=== PATIENT | female | born 1995 | race Caucasian/White ===

== ENCOUNTER 2017-07-11 11:55 | Inpatient (IN) | payer OTHER ==
[2017-07-11 12:35] LABS: HEMOGLOBIN 13.9 g/dl (12.0-15.5); MEAN CORPUSCULAR HEMOGLOBIN 31.3 pg (27.0-33.0); MEAN CORPUSCULAR HGB CONC 34.8 g/dl (32.0-36.5); MEAN CORPUSCULAR VOLUME 90.1 fl (80.0-96.0); PLATELET COUNT, AUTOMATED 234 10^3/uL (150-450); RED BLOOD COUNT 4.44 10^6/uL (4.00-5.40); RED CELL DISTRIBUTION WIDTH 12.5 % (11.5-14.5); WHITE BLOOD COUNT 7.3 10^3/uL (4.0-10.0)
[2017-07-11 12:52] LABS: CONTROL LINE HCG INT CTR LINE PRESENT; HCG, SERUM QUALITATIVE NEGATIVE (NEGATIVE)
[2017-07-11 12:56] LABS: AMPHETAMINES LEVEL URINE NEGATIVE (NEGATIVE); BARBITURATES URINE NEGATIVE (NEGATIVE); BENZODIAZEPINES URINE POSITIVE (NEGATIVE); CANNABINOIDS URINE NEGATIVE (NEGATIVE); COCAINE METABOLITE URINE NEGATIVE (NEGATIVE); METHADONE URINE NEGATIVE (NEGATIVE); OPIATES URINE NEGATIVE (NEGATIVE); PHENCYCLIDINE URINE NEGATIVE (NEGATIVE)
[2017-07-11 13:04] LABS: ALBUMIN 4.4 GM/DL (3.2-5.2); ALBUMIN/GLOBULIN RATIO 1.16 (1.00-1.93); ALKALINE PHOSPHATASE 123 U/L (45-117); ALT/SGPT 26 U/L (12-78); ANION GAP 7 MEQ/L (8-16); AST/SGOT 22 U/L (7-37); BILIRUBIN,DIRECT 0.3 MG/DL (0.0-0.2); BILIRUBIN,TOTAL 1.1 MG/DL (0.2-1.0); BLOOD UREA NITROGEN 14 MG/DL (7-18); CALCIUM LEVEL 9.2 MG/DL (8.5-10.1); CARBON DIOXIDE LEVEL 25 MEQ/L (21-32); CHLORIDE LEVEL 106 MEQ/L (98-107); CREATININE FOR GFR 0.81 MG/DL (0.55-1.30); ETHYL ALCOHOL (ETHANOL) < 0.003 % (0.000-0.010); GLUCOSE, FASTING 86 MG/DL (70-100); POTASSIUM SERUM 3.7 MEQ/L (3.5-5.1); SALICYLATE LEVEL < 1.7 MG/DL (5.0-30.0); SODIUM LEVEL 138 MEQ/L (136-145); THYROID STIMULATING HORMONE 0.722 uIU/ML (0.463-3.98); TOTAL PROTEIN 8.2 GM/DL (6.4-8.2)
[2017-07-11 13:22] LABS: ACETAMINOPHEN LEVEL < 2.0 UG/ML (10.0-30.0)
[2017-07-11] MEDS ORDERED: MAALOX 30 ML SUSP *UDC PO (18:45)
[2017-07-11] MEDS ORDERED: MOM 30ML SUSPENSION UDC PO (18:45)
[2017-07-11] MEDS ORDERED: traZODone 50 MG TAB PO (18:45)
[2017-07-11] MEDS ORDERED: ACETAMINOPHEN TAB 650MG DOSE (2X325MG) PO (18:45)
[2017-07-11] MEDS: LORazepam 1 MG TAB PO (21:48)
[2017-07-12] MEDS: SERTRALINE HCL 50 MG TAB PO (09:05)
[2017-07-12] MEDS ORDERED: hydrOXYzine 25 MG TAB PO (12:30)
[2017-07-12] MEDS ORDERED: PILL CRUSHER/CUTTER 1 EACH XX (12:45)
[2017-07-12] MEDS: DOXEPIN 25 MG CAP PO (20:49)
[2017-07-12] MEDS: PRAZOSIN 1 MG CAP PO (20:50)
[2017-07-13] MEDS: SERTRALINE 100 MG TAB PO (08:11)
[2017-07-13] MEDS: DOXEPIN 25 MG CAP PO (20:55)
[2017-07-13] MEDS: PRAZOSIN 1 MG CAP PO (20:55)
[2017-07-14] MEDS: SERTRALINE 100 MG TAB PO (08:59)
== END 2017-07-14 12:30 | disposition home or self-care (01) | DRG 882 ==
LOC: M ED 11:55 → M ED INP 15:21 → M PSY 17:15
DX: F43.10 Post-traumatic stress disorder, unspecified (principal); R45.851 Suicidal ideations; F32.9 Major depressive disorder, single episode, unspecified; Z79.899 Other long term (current) drug therapy; F17.200 Nicotine dependence, unspecified, uncomplicated

== ENCOUNTER 2018-02-01 09:53 | Emergency (ER) | payer OTHER ==
[2018-02-01 10:32] LABS: BASO % 0.6 % (0.0-1.0); EOS # 0.1 10^3/uL (0.0-0.50); EOS % 0.9 % (0.0-3.0); HEMOGLOBIN 13.7 g/dl (12.0-15.5); IMMATURE GRANULOCYTE % 0.2 % (0-3.0); LYMPH # 2.1 10^3/uL (1.5-6.5); LYMPH % 32.3 % (24.0-44.0); MEAN CORPUSCULAR HEMOGLOBIN 30.6 pg (27.0-33.0); MEAN CORPUSCULAR HGB CONC 33.4 g/dl (32.0-36.5); MEAN CORPUSCULAR VOLUME 91.7 fl (80.0-96.0); MONO # 0.6 10^3/uL (0.0-0.8); MONO % 8.6 % (0.0-5.0); NEUTROPHILS # 3.7 10^3/uL (1.8-7.7); NEUTROPHILS % 57.4 % (36.0-66.0); PLATELET COUNT, AUTOMATED 266 10^3/uL (150-450); RED BLOOD COUNT 4.47 10^6/uL (4.00-5.40); RED CELL DISTRIBUTION WIDTH 12.5 % (11.5-14.5); WHITE BLOOD COUNT 6.4 10^3/uL (4.0-10.0)
[2018-02-01 10:43] LABS: KETONE, URINE AUTO RFX NEGATIVE (NEGATIVE); LEUKOCYTE ESTERASE UR AUTO RFX 1+ (NEGATIVE); NITRITE, URINE AUTO RFX NEGATIVE (NEGATIVE); RBC, URINE AUTO RFX 0 /HPF (0-3); SPECIFIC GRAVITY UR AUTO RFX 1.014 (1.002-1.035); SQUAM EPITHELIAL CELL UR AURFX 1 /HPF (0-6); WBC, URINE AUTO RFX 2 /HPF (0-3)
[2018-02-01 11:03] LABS: ALBUMIN/GLOBULIN RATIO 1.11 (1.00-1.93); ALKALINE PHOSPHATASE 93 U/L (45-117); ALT/SGPT 22 U/L (12-78); ANION GAP 7 MEQ/L (8-16); AST/SGOT 15 U/L (7-37); BILIRUBIN,DIRECT 0.2 MG/DL (0.0-0.2); BILIRUBIN,TOTAL 0.8 MG/DL (0.2-1.0); BLOOD UREA NITROGEN 16 MG/DL (7-18); CALCIUM LEVEL 8.6 MG/DL (8.5-10.1); CARBON DIOXIDE LEVEL 28 MEQ/L (21-32); CHLORIDE LEVEL 104 MEQ/L (98-107); CREATININE FOR GFR 0.76 MG/DL (0.55-1.30); GLUCOSE, FASTING 93 MG/DL (70-100); LIPASE 150 U/L (73-393); POTASSIUM SERUM 4.2 MEQ/L (3.5-5.1); SODIUM LEVEL 139 MEQ/L (136-145); TOTAL PROTEIN 7.6 GM/DL (6.4-8.2)
[2018-02-01 11:29] LABS: CONTROL LINE HCG INT CTR LINE PRESENT; HCG, SERUM QUALITATIVE NEGATIVE (NEGATIVE)
[2018-02-01] MEDS: GI COCKTAIL 50ML BTL(HYOSCYAMINE/MAALOX/LIDOCAINE VISCOUS)(1:3:1) PO (11:49)
== END 2018-02-01 11:56 | disposition home or self-care (01) ==
LOC: M ED 09:53
DX: K29.00 Acute gastritis without bleeding (principal); F33.9 Major depressive disorder, recurrent, unspecified; F41.9 Anxiety disorder, unspecified; Z79.899 Other long term (current) drug therapy
CPT/HCPCS: 83690

== ENCOUNTER 2018-03-19 21:20 | Emergency (ER) | payer OTHER ==
[~2018-03-19] VITALS: Ht 157.5 cm; Wt 63.6 kg
[2018-03-19 21:20] VITALS: BP 139/65
[~2018-03-19 21:20] MED LIST: AMOX500C PO; ARIP5TA PO; DOXE25CA PO; HYDR-3363 PO; MINI1CAP PO; OMEP40CA2 PO; PRAZ1CAP PO; SERT-138 PO; TRAZ1TAB14 PO; XANA0.5T PO; ZOFR4TAB14 PO; ZOLO50TA PO
[2018-03-19] MEDS ORDERED: IBUP-1022 PO (22:15)
[2018-03-19] MEDS ORDERED: IBUPROFEN 600 MG TAB PO ONE (22:15)
[2018-03-19] MEDS ORDERED: REGL10TA6 PO (22:15)
[2018-03-19] MEDS ORDERED: METOCLOPRAMIDE 10 MG TAB PO ONE (22:15)
== END 2018-03-19 22:25 | disposition home or self-care (01) ==
LOC: M ED 21:20
DX: S06.0X9A Concussion with loss of consciousness of unspecified duration, initial encounter (principal); Y04.8XXA Assault by other bodily force, initial encounter; Y92.019 Unspecified place in single-family (private) house as the place of occurrence of the external cause

== ENCOUNTER 2018-04-03 15:58 | Emergency (ER) | payer OTHER ==
[~2018-04-03] VITALS: Ht 157.5 cm; Wt 63.6 kg
[~2018-04-03 15:58] MED LIST changes: +IBUP-1022 PO; +REGL10TA6 PO
[2018-04-03] MEDS ORDERED: ROBA500T PO (18:05)
[2018-04-03] MEDS ORDERED: REGL10TA6 PO (18:05)
[2018-04-03] MEDS ORDERED: ACETAMINOPHEN 325 MG TAB PO ONE (18:15)
[2018-04-03] MEDS ORDERED: METHOCARBAMOL 750 MG TAB PO ONE (18:15)
[2018-04-03 18:35] VITALS: BP 119/66
== END 2018-04-03 18:36 | disposition home or self-care (01) ==
LOC: M ED 15:58
DX: S06.0X0A Concussion without loss of consciousness, initial encounter (principal); E86.0 Dehydration; Y04.8XXA Assault by other bodily force, initial encounter; Y92.89 Other specified places as the place of occurrence of the external cause; Z79.899 Other long term (current) drug therapy

== ENCOUNTER 2018-06-24 21:01 | Emergency (ER) | payer OTHER, SELFPAY ==
[~2018-06-24] VITALS: Ht 154.9 cm; Wt 65.9 kg
[~2018-06-24 21:01] MED LIST changes: +ARIP1TAB6 PO; -ARIP5TA PO; +ROBA500T PO
[2018-06-24] MEDS ORDERED: CLINDAMYCIN 150 MG CAP PO ONE (22:15)
[2018-06-24] MEDS ORDERED: CLEO300C2 PO (22:16)
[2018-06-24 22:38] VITALS: BP 135/69
[2018-07-20] MEDS ORDERED: TRAZ-252 PO (21:36)
== END 2018-06-24 22:41 | disposition home or self-care (01) ==
LOC: M ED 21:01
DX: L03.116 Cellulitis of left lower limb (principal); F41.9 Anxiety disorder, unspecified; F32.9 Major depressive disorder, single episode, unspecified; Z79.899 Other long term (current) drug therapy

== ENCOUNTER 2018-07-07 05:10 | Emergency (ER) | payer OTHER, SELFPAY ==
[~2018-07-07] VITALS: Ht 157.5 cm; Wt 63.6 kg
[~2018-07-07 05:10] MED LIST changes: +CLEO300C2 PO
[2018-07-07] MEDS ORDERED: ONDANSETRON 4MG/2ML VIAL (J2405) IV ONE (06:15)
[2018-07-07] MEDS: MORPHINE 2 MG/ML 1ML SYRINGE (J2270) IV PRN ×2 (06:28→07:18)
[2018-07-07 06:37] LABS: BASO # 0.1 10^3/uL (0.0-0.2); BASO % 0.5 % (0.0-1.0); EOS # 0.1 10^3/uL (0.0-0.50); EOS % 0.8 % (0.0-3.0); HEMATOCRIT 39.4 % (36.0-47.0); HEMOGLOBIN 13.5 g/dl (12.0-15.5); LYMPH # 2.1 10^3/uL (1.5-6.5); LYMPH % 14.1 % (24.0-44.0); MEAN CORPUSCULAR HEMOGLOBIN 30.8 pg (27.0-33.0); MEAN CORPUSCULAR HGB CONC 34.3 g/dl (32.0-36.5); MEAN CORPUSCULAR VOLUME 89.7 fl (80.0-96.0); MONO # 0.8 10^3/uL (0.0-0.8); MONO % 5.7 % (0.0-5.0); NEUTROPHILS # 11.4 10^3/uL (1.8-7.7); NEUTROPHILS % 78.4 % (36.0-66.0); PLATELET COUNT, AUTOMATED 253 10^3/uL (150-450); RED BLOOD COUNT 4.39 10^6/uL (4.00-5.40); WHITE BLOOD COUNT 14.5 10^3/uL (4.0-10.0)
[2018-07-07 06:52] LABS: HCG, SERUM QUALITATIVE NEGATIVE (NEGATIVE)
[2018-07-07] MEDS ORDERED: NORC1TAB7 PO (06:54)
[2018-07-07 07:17] LABS: AMPHETAMINES LEVEL URINE NEGATIVE (NEGATIVE); BARBITURATES URINE NEGATIVE (NEGATIVE); BENZODIAZEPINES URINE NEGATIVE (NEGATIVE); CANNABINOIDS URINE POSITIVE (NEGATIVE); COCAINE METABOLITE URINE NEGATIVE (NEGATIVE); METHADONE URINE NEGATIVE (NEGATIVE); OPIATES URINE NEGATIVE (NEGATIVE); PHENCYCLIDINE URINE NEGATIVE (NEGATIVE)
--- NOTE | 2018-07-07 08:26 | REP ---
CT abdomen and pelvis without IV or oral contrast: History: Right renal colic. Findings: Preliminary digital clinical aide radiograph demonstrates umbilical jewelry. The lung bases are clear on axial CT images. The liver and the spleen are normal in size homogeneous in texture. No adrenal lesion is seen. The gallbladder and the pancreas are unremarkable. There is no evidence of intrarenal calculus on either side. No hydronephrosis is seen. No retroperitoneal mass or adenopathy is observed. Normal appendix is seen in the right lower quadrant. No uterine or ovarian abnormality is seen. Urinary bladder is unremarkable. There is there is no evidence of free air or abnormal fluid collection. No abdominal wall defect or bony destructive lesion is seen. Impression: No urinary tract calculus seen. No hydronephrosis noted. A normal appendix is seen in the central pelvis. No acute abdominal or pelvic abnormality. Electronically Signed by Reese Mehta MD 07/07/2018 08:18 A
[2018-07-07] MEDS ORDERED: METOCLOPRAMIDE INJ 10MG/2ML VIAL (J2765) IV ONE (09:45)
[2018-07-07] MEDS ORDERED: REGL10TA6 PO (11:15)
[2018-07-07 11:39] VITALS: BP 110/65
[2018-07-20] MEDS ORDERED: TRAZ-252 PO (21:36)
== END 2018-07-07 11:40 | disposition home or self-care (01) ==
LOC: M ED 05:10
DX: R11.2 Nausea with vomiting, unspecified (principal); R19.7 Diarrhea, unspecified; F43.10 Post-traumatic stress disorder, unspecified; F32.9 Major depressive disorder, single episode, unspecified; F41.9 Anxiety disorder, unspecified; Z91.5 Personal history of self-harm; Z79.899 Other long term (current) drug therapy
CPT/HCPCS: 74176; 80307; 81001; 84703; 85025; 87086; 96374; 96375; 96376; 99284; J2270; J2405; J2765

== ENCOUNTER 2018-07-20 14:52 | Inpatient (IN) | payer OTHER, SELFPAY ==
[~2018-07-20] VITALS: Ht 157.5 cm; Wt 69.5 kg
[~2018-07-20 14:52] MED LIST changes: +NORC1TAB7 PO
[2018-07-20 15:38] LABS: BASO % 0.2 % (0.0-1.0); HEMATOCRIT 35.3 % (36.0-47.0); HEMOGLOBIN 12.3 g/dl (12.0-15.5); LYMPH # 0.6 10^3/uL (1.5-6.5); LYMPH % 3.3 % (24.0-44.0); MEAN CORPUSCULAR HEMOGLOBIN 30.8 pg (27.0-33.0); MEAN CORPUSCULAR HGB CONC 34.8 g/dl (32.0-36.5); MEAN CORPUSCULAR VOLUME 88.5 fl (80.0-96.0); MONO # 0.8 10^3/uL (0.0-0.8); MONO % 4.1 % (0.0-5.0); NEUTROPHILS # 17.7 10^3/uL (1.8-7.7); NEUTROPHILS % 91.7 % (36.0-66.0); PLATELET COUNT, AUTOMATED 358 10^3/uL (150-450); RED BLOOD COUNT 3.99 10^6/uL (4.00-5.40); WHITE BLOOD COUNT 19.3 10^3/uL (4.0-10.0)
[2018-07-20 16:10] LABS: ALBUMIN 3.5 GM/DL (3.2-5.2); ALT/SGPT 18 U/L (12-78); BILIRUBIN,DIRECT 0.2 MG/DL (0.0-0.2); BILIRUBIN,TOTAL 0.6 MG/DL (0.2-1.0); BLOOD UREA NITROGEN 6 MG/DL (7-18); CALCIUM LEVEL 9.1 MG/DL (8.5-10.1); CARBON DIOXIDE LEVEL 28 MEQ/L (21-32); CHLORIDE LEVEL 102 MEQ/L (98-107); CREATININE FOR GFR 0.75 MG/DL (0.55-1.30); GLOMERULAR FILTRATION RATE > 60.0 (>60); GLUCOSE, FASTING 104 MG/DL (70-100); LIPASE 116 U/L (73-393); POTASSIUM SERUM 3.8 MEQ/L (3.5-5.1); SODIUM LEVEL 136 MEQ/L (136-145); TOTAL PROTEIN 8.4 GM/DL (6.4-8.2)
[2018-07-20] MEDS ORDERED: NS 1,000 ML IV ONE (17:45)
[2018-07-20] MEDS ORDERED: KETOROLAC 30 MG/ML VIAL (J1885) IV ONE (17:45)
[2018-07-20] MEDS ORDERED: ONDANSETRON 4MG/2ML VIAL (J2405) IV ONE (17:45)
[2018-07-20] MEDS ORDERED: ACETAMINOPHEN 325 MG TAB PO ONE (17:45)
[2018-07-20] MEDS ORDERED: ISOVUE-370 76% 100ML VIAL (Q9967) As Ordered ONE (17:59)
--- NOTE | 2018-07-20 18:47 | REP ---
Clinical: Left lower quadrant pain. Technique: Axial contrast enhanced images from the lung bases to the pubic symphysis with coronal and sagittal re-formations using 100 ml Isovue 370 intravenous contrast material. Comparison: 07/07/2018. Findings: Irregular complex-appearing fluid collection in the left hemipelvis possibly multi-tubular is appreciated with small amount of adjacent free fluid. Similar but more mild changes along the right hemipelvis are also identified. The uterus appears normal. Differential diagnosis would include pelvic inflammatory disease with hydro/pyosalpinx and less likely pelvic abscess sees possibly related to inflammatory process involving the adjacent small/large bowel which is somewhat incompletely evaluated due to the lack of oral contrast. A normal appendix is identified in the right lower quadrant. There is no evidence for bowel obstruction although fluid-filled loops of small large bowel are identified which raise the possibility of underlying enterocolitis. Liver, spleen, pancreas, gallbladder, bilateral adrenal glands and kidneys are normal. No significant ascites. No free air. No obvious adenopathy. Abdominal aorta and vasculature normal. Musculoskeletal structures are intact. Impression: Complex cystic collection in the left tamie pelvis measuring roughly 7.6 x 4.9 x 4.5 cm and smaller but similar area in the right adnexa identified. Differential diagnosis would include hydro/pyosalpinx related to pelvic inflammatory disease as well as possible multiloculated abscess related to infectious/inflammatory enterocolitis. Electronically Signed by Richie Dee MD 07/20/2018 06:39 P
[2018-07-20] MEDS ORDERED: MORPHINE 4 MG/ML 1ML VIAL/SYRINGE (J2270) IV ONE ×2 (19:00→23:15)
[2018-07-20] MEDS ORDERED: AMPICILLIN SOD/SULBACTAM SOD 3 GM in D5W MINI-BAG PLUS 100 ML IV ONE (19:15)
--- NOTE | 2018-07-20 20:04 | REP ---
Clinical: Complex cystic lesion possible hydrosalpinx by CT. Technique: Transabdominal pelvic ultrasound followed by transvaginal examination for better evaluation of the endometrium and adnexa. Findings: Normal anteverted uterus measures 8.9 x 3.2 x 5.8 cm. Endometrial complex measures 4.6 mm thickness. Large complex collection in the left adnexa measures approximately 7.7 x 4.6 x 4.4 cm while similar complex collection in the right adnexa measures approximately 5.1 x 3.4 x 2.9 cm. Normal ovaries are not identified. Impression: Large complex collection in the bilateral adnexa surrounding normal uterus. Ovaries not visualized. Differential diagnosis again includes pelvic inflammatory disease and pyosalpinx versus nonspecific pelvic abscesses. Electronically Signed by Richie Dee MD 07/20/2018 07:55 P
[2018-07-20] MEDS ORDERED: ONDANSETRON 4MG/2ML VIAL (J2405) IV PRN (21:00)
[2018-07-20] MEDS ORDERED: ACETAMINOPHEN TAB 650MG DOSE (2X325MG) PO PRN (21:00)
[2018-07-20] MEDS ORDERED: ACET-897 PO (21:35)
[2018-07-20] MEDS ORDERED: PRAZ1CAP PO (21:35)
[2018-07-20] MEDS ORDERED: FLUO20CA19 PO (21:35)
[2018-07-20] MEDS ORDERED: HYDR-3363 PO (21:35)
[2018-07-20] MEDS ORDERED: METO10TA2 PO ×2 (21:35→21:38)
[2018-07-20] MEDS ORDERED: TRAZ1TAB14 PO (21:35)
[2018-07-20] MEDS ORDERED: VITMTA PO (21:36)
[2018-07-20] MEDS ORDERED: TRAZ-160 PO (21:36)
[2018-07-20] MEDS ORDERED: HYDR50TA70 PO (21:36)
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
[2018-07-20 22:39] LABS: BLOOD UREA NITROGEN 6 MG/DL (7-18); CALCIUM LEVEL 8.4 MG/DL (8.5-10.1); CARBON DIOXIDE LEVEL 23 MEQ/L (21-32); CHLORIDE LEVEL 105 MEQ/L (98-107); CREATININE FOR GFR 0.66 MG/DL (0.55-1.30); GLOMERULAR FILTRATION RATE > 60.0 (>60); GLUCOSE, FASTING 110 MG/DL (70-100); POTASSIUM SERUM 3.3 MEQ/L (3.5-5.1); SODIUM LEVEL 139 MEQ/L (136-145)
[2018-07-20] MEDS: DOXYCYCLINE HYCLATE 100 MG in D5W MINI-BAG PLUS 100 ML IV SCH (22:46)
[2018-07-20 23:05] LABS: CHLAMYDIA DNA AMPLIFICATION POSITIVE (NEGATIVE); GC DNA AMPLIFICATION NEGATIVE (NEGATIVE)
[2018-07-20 23:30] VITALS: BP 121/88
[2018-07-20] MEDS: LR 1,000 ML IV SCH (23:57)
[2018-07-20] MEDS: KETOROLAC 30 MG/ML VIAL (J1885) IV SCH (23:57)
[2018-07-21] MEDS: cefoTEtan DISODIUM 2 GM in D5W MINI-BAG PLUS 50 ML IV SCH ×2 (02:36→14:30)
[2018-07-21] MEDS: MORPHINE 4 MG/ML 1ML VIAL/SYRINGE (J2270) IV PRN ×5 (02:40→12:26)
[2018-07-21] MEDS: PROMETHAZINE INJ 25 MG/ML VIAL (J2550) IV PRN ×2 (03:19→10:25)
[2018-07-21 04:00] VITALS: BP 117/76
[2018-07-21] MEDS: KETOROLAC 30 MG/ML VIAL (J1885) IV SCH ×3 (05:48→18:22)
[2018-07-21 06:50] LABS: BASO % 0.3 % (0.0-1.0); HEMATOCRIT 31.2 % (36.0-47.0); HEMOGLOBIN 10.7 g/dl (12.0-15.5); LYMPH # 0.6 10^3/uL (1.5-6.5); LYMPH % 5.4 % (24.0-44.0); MEAN CORPUSCULAR HEMOGLOBIN 29.8 pg (27.0-33.0); MEAN CORPUSCULAR HGB CONC 34.3 g/dl (32.0-36.5); MEAN CORPUSCULAR VOLUME 86.9 fl (80.0-96.0); MONO # 0.5 10^3/uL (0.0-0.8); MONO % 4.5 % (0.0-5.0); NEUTROPHILS # 10.5 10^3/uL (1.8-7.7); NEUTROPHILS % 89.2 % (36.0-66.0); PLATELET COUNT, AUTOMATED 318 10^3/uL (150-450); RED BLOOD COUNT 3.59 10^6/uL (4.00-5.40); WHITE BLOOD COUNT 11.8 10^3/uL (4.0-10.0)
[2018-07-21] MEDS: LR 1,000 ML IV SCH ×2 (07:04→17:00)
[2018-07-21 07:14] LABS: ALBUMIN 2.9 GM/DL (3.2-5.2); ALT/SGPT 43 U/L (12-78); BILIRUBIN,TOTAL 0.5 MG/DL (0.2-1.0); BLOOD UREA NITROGEN 7 MG/DL (7-18); CALCIUM LEVEL 8.8 MG/DL (8.5-10.1); CARBON DIOXIDE LEVEL 25 MEQ/L (21-32); CHLORIDE LEVEL 104 MEQ/L (98-107); CREATININE FOR GFR 0.95 MG/DL (0.55-1.30); GLOMERULAR FILTRATION RATE > 60.0 (>60); GLUCOSE, FASTING 105 MG/DL (70-100); POTASSIUM SERUM 3.2 MEQ/L (3.5-5.1); SODIUM LEVEL 136 MEQ/L (136-145); TOTAL PROTEIN 7.2 GM/DL (6.4-8.2)
--- NOTE | 2018-07-21 07:24 | IPNPDOC ---
Text Note Date of Service The patient was seen on 07/21/18. NOTE HD#2 Sourav is a 23 yo female who was admitted to the hospital yesterday evening for tuboovarian abscess (possibly bilaterally) after presenting to the ER with LLQ and vomiting. She was febrile upon presentation and had significant left adnexal tenderness to exam. Imaging revealed a 7cm left sided pelvic abscess. She was started on IV cefotetan and IV doxycycline after receiving one dose of Unasyn in the ER. Blood and urine cultures were obtained. She is currently on the peds golden. Sourav reports feeling improved this morning. She still has pelvic pain, but is better this morning. Pain medications are helping. She has tolerated some clear liquids but did have one episode of emesis overnight. She denies any fevers. She continues to pass gas. Vitals - VSS, normotensive, non tachycardic, afebrile since tmax of 102.1 at 1731 on [id number]. General - Laying in bed, AAOX, NAD Abdomen - Soft, nondistended. toe closing machine tender to palpation in LLQ, but much impr guerline. Extremities - No edema Labs: WBC trend: 19.3 on admission ---> 11.8 this AM GC/CT PCR --> positive for chlamydia trachomatis Wet prep - negative CMP - pending No new imaging Sourav appears clinically better this AM with improved pelvic pain. She has been afebrile now for ~14 hours. WBC is downtrending. Plan to continue parenteral antibiotics until at least 48 hours afebrile. Will continue to follow closely for clinical improvement of symptoms. Will place IR consultation for possible drainage of abscess today. I discussed with her the chlamydia diagnosis and the need for her partner to be treated (he was not present in her room this morning). She verbalized understanding. All patient questions answered. Domenic Chu, DO VS,Keo, I+O VS, Keo, I+O Laboratory Tests 07/20/18 15:30 Red Blood Count 3.99 L, Mean Corpuscular Volume 88.5, Mean Corpuscular Hemoglobin 30.8, Mean Corpuscular Hemoglobin Concent 34.8, Red Cell Distribution Width 11.8, Neutrophils (%) (Auto) 91.7 H, Lymphocytes (%) (Auto) 3.3 L, Monocytes (%) (Auto) 4.1, Eosinophils (%) (Auto) 0.0, Basophils (%) (Auto) 0.2, Neutrophils # (Auto) 17.7 H, Lymphocytes # (Auto) 0.6 L, Monocytes # (Auto) 0.8, Eosinophils # (Auto) 0.0, Basophils # (Auto) 0.0 07/20/18 21:57 Calcium Level 8.4 L 07/21/18 06:22 Red Blood Count 3.59 L, Mean Corpuscular Volume 86.9, Mean Corpuscular Hemoglobin 29.8, Mean Corpuscular Hemoglobin Concent 34.3, Red Cell Distribution Width 12.0, Neutrophils (%) (Auto) 89.2 H, Lymphocytes (%) (Auto) 5.4 L, Monocytes (%) (Auto) 4.5, Eosinophils (%) (Auto) 0.0, Basophils (%) (Auto) 0.3, Neutrophils # (Auto) 10.5 H, Lymphocytes # (Auto) 0.6 L, Monocytes # (Auto) 0.5, Eosinophils # (Auto) 0.0, Basophils # (Auto) 0.0 Vital Signs Date Time Temp Pulse Resp B/P (MAP) Pulse Ox O2 Delivery O2 Flow Rate FiO2 07/21/18 06:10 18 07/21/18 04:00 99.1 92 117/76 (90) 98 07/20/18 22:58 Room Air I&O- Last 24 Hours up to 6 AM 07/21/18 06:00 Intake Total 1370 ml Output Total 350 ml Balance 1020 ml DOMENIC CHU DO July 21, 2018 07:24
[2018-07-21 08:00] VITALS: BP 113/75
[2018-07-21] MEDS ORDERED: traZODone 50 MG TAB PO PRN (08:00)
[2018-07-21] MEDS: DOXYCYCLINE HYCLATE 100 MG in D5W MINI-BAG PLUS 100 ML IV SCH ×2 (08:21→20:29)
[2018-07-21] MEDS ORDERED: LIDOCAINE 1% MDV 20ML VIAL As Ordered ONE (11:14)
[2018-07-21 12:39] LABS: HIV 1&2 SCREEN CENTAUR NEGATIVE (NEGATIVE)
[2018-07-21] MEDS: hydrOXYzine 25 MG TAB PO PRN (12:47)
[2018-07-21 13:00] VITALS: BP 120/64
[2018-07-21] MEDS ORDERED: oxyCODONE 5MG TAB PO PRN (14:15)
[2018-07-21 14:30] VITALS: BP 107/62
--- NOTE | 2018-07-21 16:20 | REP ---
Ultrasound-guided abscess drainage The procedure was performed by JUAN Lees, under the personal supervision of Dr. Pena. The risks and benefits of the procedure were explained to the patient and informed consent was obtained both verbally and written. Directly prior to the start of the procedure, a formal timeout was completed in the procedure room. Under ultrasound guidance, the largest pocket of abscess in the left adnexa was localized and skin was marked. The skin was then prepped and draped in a sterile fashion. 14 ml of 1% lidocaine was used as a local anesthetic. Using ultrasound guidance, an 5-Korean multiphase side-hole catheter was inserted using trocar technique. 36 mL of red tinged puss colored fluid was withdrawn and sent to the lab for further testing. The patient experienced intense pain directly after the procedure, the unit was notified., and the patient was discharged back to the unit. Reviewed by JUAN Horn 07/21/2018 12:50 P Electronically Signed by Stanford Pena MD 07/21/2018 04:12 P
[2018-07-21] MEDS ORDERED: PERCOCET 5MG/325MG TAB PO PRN (19:45)
[2018-07-21 20:00] VITALS: BP 121/76
[2018-07-21] MEDS: PRAZOSIN 1 MG CAP PO SCH (20:29)
[2018-07-21] MEDS: PERCOCET 5MG/325MG TAB PO PRN (20:31)
[2018-07-22] VITALS: BP 98/55
[2018-07-22] MEDS: KETOROLAC 30 MG/ML VIAL (J1885) IV SCH ×2 (00:12→06:15)
[2018-07-22] MEDS: PERCOCET 5MG/325MG TAB PO PRN ×2 (02:35→16:10)
[2018-07-22] MEDS: LR 1,000 ML IV SCH (03:25)
[2018-07-22] MEDS: cefoTEtan DISODIUM 2 GM in D5W MINI-BAG PLUS 50 ML IV SCH ×2 (03:25→14:22)
[2018-07-22 03:46] VITALS: BP 101/58
[2018-07-22 07:02] LABS: BASO % 0.3 % (0.0-1.0); EOS # 0.2 10^3/uL (0.0-0.50); EOS % 2.4 % (0.0-3.0); HEMATOCRIT 25.5 % (36.0-47.0); LYMPH # 1.6 10^3/uL (1.5-6.5); LYMPH % 25.3 % (24.0-44.0); MEAN CORPUSCULAR HEMOGLOBIN 30.4 pg (27.0-33.0); MEAN CORPUSCULAR HGB CONC 33.3 g/dl (32.0-36.5); MEAN CORPUSCULAR VOLUME 91.1 fl (80.0-96.0); MONO # 0.5 10^3/uL (0.0-0.8); MONO % 8.6 % (0.0-5.0); NEUTROPHILS # 3.9 10^3/uL (1.8-7.7); NEUTROPHILS % 62.6 % (36.0-66.0); PLATELET COUNT, AUTOMATED 243 10^3/uL (150-450); WHITE BLOOD COUNT 6.3 10^3/uL (4.0-10.0)
[2018-07-22 07:17] LABS: HEMOGLOBIN 8.5 g/dl (12.0-15.5)
[2018-07-22 07:22] LABS: ALBUMIN 2.1 GM/DL (3.2-5.2); ALT/SGPT 37 U/L (12-78); BILIRUBIN,TOTAL 0.1 MG/DL (0.2-1.0); BLOOD UREA NITROGEN 6 MG/DL (7-18); CALCIUM LEVEL 7.8 MG/DL (8.5-10.1); CARBON DIOXIDE LEVEL 28 MEQ/L (21-32); CHLORIDE LEVEL 109 MEQ/L (98-107); CREATININE FOR GFR 0.91 MG/DL (0.55-1.30); GLOMERULAR FILTRATION RATE > 60.0 (>60); GLUCOSE, FASTING 97 MG/DL (70-100); POTASSIUM SERUM 3.3 MEQ/L (3.5-5.1); SODIUM LEVEL 144 MEQ/L (136-145); TOTAL PROTEIN 6.1 GM/DL (6.4-8.2)
[2018-07-22 08:00] VITALS: BP 98/64
[2018-07-22] MEDS: FLUoxetine 20 MG CAP PO SCH (08:22)
[2018-07-22] MEDS: DOXYCYCLINE HYCLATE 100 MG in D5W MINI-BAG PLUS 100 ML IV SCH ×2 (08:22→22:05)
--- NOTE | 2018-07-22 10:06 | IPNPDOC ---
Text Note Date of Service The patient was seen on 07/22/18. NOTE HD#3 Patient seen this AM. Yesterday she underwent IR guided drainage of pelvic abscess on the left side. 37cc of purulent fluid were removed and sent for culture. She continues on IV abx. She has been transitioned to a regular diet and is tolerating PO. She has been fever free since [id number] at 1730, however yesterday she had a temp of 100.3 at 1300. No acute events last night. Sourav continues to feel better. She had abdominal pain after her IR drainage procedure, but this has improved and she continues to respond well to analgesics. She denies feeling feverish. She also denies any vomiting. She is ambulating to the bathroom and voiding without issues. Vitals - VSS, BP (90s-110s/50s-70s), HR 60s, afebrile General - Laying in bed, AAOX, NAD Abdomen - Soft, nondistended. Incision from IR guided drainage covered with bandage. Bandage clean/dry/intact. Abdomen with minimal tenderness throughout to palpation. Extremities - No edema Urine output - Excellent Labs: WBC trend: 19.3 on admission ---> 11.8 yesterday AM ---> 6.3 this AM (22Jul2018) H/H - 10.7/31.2 yesterday --> 8.5/25.5 this AM (22Jul2018) BMP - 144/3.3--109/28--6/0.91<97 AST/ALT - 39/37 Urine cultures - consistent with contamination Blood cultures - Negative at 24 hours Abscess culture from IR drainage - pending Sourav continues to show clinical improvement. She still has pelvic and abdominal pain, but it is much improved since admission and she is responding well to analgesics. No signs of sepsis and she has been afebrile for >24 hours. WBC count continues to trend down. H/H drop likely dilutional, and she continues to make excellent urine and her HR is in the 60s. I have very low suspicion for intra abdominal bleeding. Plan to continue IV antibiotics until at least 48 hours afebrile as we await culture results from her abscess drainage. Will need to transition to PO abx upon discharge for 14 day total course. Should she continue to do well, discharge may occur Tuesday AM with close outpatient follow up arranged. All patient questions answered. Cristiano Chu DO VS,Keo, I+O VS, Keo, I+O Laboratory Tests 07/22/18 06:14 Red Blood Count 2.80 L, Mean Corpuscular Volume 91.1, Mean Corpuscular Hem oglobin 30.4, Mean Corpuscular Hemoglobin Concent 33.3, Red Cell Distribution Width 12.3, Neutrophils (%) (Auto) 62.6, Lymphocytes (%) (Auto) 25.3, Monocytes (%) (Auto) 8.6 H, Eosinophils (%) (Auto) 2.4, Basophils (%) (Auto) 0.3, Neutrophils # (Auto) 3.9, Lymphocytes # (Auto) 1.6, Monocytes # (Auto) 0.5, Eosinophils # (Auto) 0.2, Basophils # (Auto) 0.0, Calcium Level 7.8 L, Aspartate Amino Transf (AST/SGOT) 39 H, Alanine Aminotransferase (ALT/SGPT) 37, Alkaline Phosphatase 69, Total Bilirubin 0.1 #L, Total Protein 6.1 L, Albumin 2.1 #L Vital Signs Date Time Temp Pulse Resp B/P (MAP) Pulse Ox O2 Delivery O2 Flow Rate FiO2 07/22/18 08:57 18 07/22/18 08:00 97.5 60 98/64 (75) 96 07/20/18 22:58 Room Air I&O- Last 24 Hours up to 6 AM 07/22/18 06:00 Intake Total 3820 ml Output Total 1600 ml Balance 2220 ml CRISTIANO CHU DO Jul 22, 2018 10:05
[2018-07-22 12:00] VITALS: BP 129/78
[2018-07-22] MEDS: IBUPROFEN 800 MG TAB PO SCH ×2 (14:22→22:06)
[2018-07-22 16:00] VITALS: BP 127/74
[2018-07-22] MEDS: MORPHINE 4 MG/ML 1ML VIAL/SYRINGE (J2270) IV PRN (17:15)
[2018-07-22] MEDS: hydrOXYzine 25 MG TAB PO PRN (17:38)
[2018-07-22 20:00] VITALS: BP 113/63
[2018-07-22] MEDS: PRAZOSIN 1 MG CAP PO SCH (22:06)
[2018-07-22] MEDS: PROMETHAZINE INJ 25 MG/ML VIAL (J2550) IV PRN (22:27)
[2018-07-23] VITALS (7 sets, daily range): BP systolic 111–129; BP diastolic 57–85
[2018-07-23] MEDS: cefoTEtan DISODIUM 2 GM in D5W MINI-BAG PLUS 50 ML IV SCH ×2 (03:29→14:29)
[2018-07-23] MEDS: IBUPROFEN 800 MG TAB PO SCH ×3 (05:22→21:39)
[2018-07-23] MEDS: PERCOCET 5MG/325MG TAB PO PRN (05:35)
[2018-07-23 06:35] LABS: BASO % 0.6 % (0.0-1.0); EOS # 0.2 10^3/uL (0.0-0.50); EOS % 3.4 % (0.0-3.0); HEMATOCRIT 24.5 % (36.0-47.0); HEMOGLOBIN 8.2 g/dl (12.0-15.5); LYMPH % 38.5 % (24.0-44.0); MEAN CORPUSCULAR HEMOGLOBIN 29.5 pg (27.0-33.0); MEAN CORPUSCULAR HGB CONC 33.5 g/dl (32.0-36.5); MEAN CORPUSCULAR VOLUME 88.1 fl (80.0-96.0); MONO # 0.6 10^3/uL (0.0-0.8); MONO % 11.1 % (0.0-5.0); NEUTROPHILS # 2.4 10^3/uL (1.8-7.7); PLATELET COUNT, AUTOMATED 304 10^3/uL (150-450); RED BLOOD COUNT 2.78 10^6/uL (4.00-5.40); WHITE BLOOD COUNT 5.2 10^3/uL (4.0-10.0)
[2018-07-23 07:07] LABS: ALBUMIN 2.5 GM/DL (3.2-5.2); ALT/SGPT 41 U/L (12-78); BILIRUBIN,TOTAL 0.2 MG/DL (0.2-1.0); BLOOD UREA NITROGEN 4 MG/DL (7-18); CALCIUM LEVEL 8.5 MG/DL (8.5-10.1); CARBON DIOXIDE LEVEL 27 MEQ/L (21-32); CHLORIDE LEVEL 105 MEQ/L (98-107); CREATININE FOR GFR 0.94 MG/DL (0.55-1.30); GLOMERULAR FILTRATION RATE > 60.0 (>60); GLUCOSE, FASTING 101 MG/DL (70-100); POTASSIUM SERUM 3.1 MEQ/L (3.5-5.1); SODIUM LEVEL 141 MEQ/L (136-145); TOTAL PROTEIN 6.8 GM/DL (6.4-8.2)
[2018-07-23] MEDS: DOXYCYCLINE HYCLATE 100 MG in D5W MINI-BAG PLUS 100 ML IV SCH (09:17)
[2018-07-23] MEDS: FLUoxetine 20 MG CAP PO SCH (09:17)
--- NOTE | 2018-07-23 10:27 | REP ---
Clinical: Status post abscess drainage. Technique: Axial noncontrast images from the lung bases to the pubic symphysis with coronal and sagittal re-formations. Comparison: 07/20/2018. Findings: The complex collection in the left tamie pelvis appears to be slightly decreased in size when compared to prior examination currently measuring approximately 6.1 x 3.5 cm and previously measuring 7.6 x 4.9 cm at a similar level. There now appears to be a small/moderate hematoma deep to the rectus muscle and superficial to the bladder which may be within the space of Retzius (images 95-140). Small amount of fat stranding is also identified within the pelvis surrounding the uterus and adnexa. The bladder is relatively normal although demonstrates mild mass effect due to the above mentioned hematoma. Liver, spleen, pancreas, gallbladder, bilateral adrenal glands and kidneys are normal for noncontrast evaluation. The enteric system is without obstruction or acute inflammatory process. Normal terminal ileum and appendix identified in the right lower quadrant. Pelvic findings as described above. The uterus appears relatively normal. No significant ascites. No free air. No significant adenopathy. Abdominal aorta without aneurysm. Osseous structures are intact. Impression: 1. Previously identified complex collection in the left tamie pelvis which may have represented abscess versus pyosalpinx appears slightly decreased in size. 2. There is a new small to moderate hematoma forming within the left side of the pelvis deep to the rectus muscle possibly within the space of Retzius and demonstrating mild mass effect on the bladder. Electronically Signed by Richie Dee MD 07/23/2018 10:19 A
--- NOTE | 2018-07-23 10:30 | IPNPDOC ---
Text Note Date of Service The patient was seen on 07/23/18. NOTE HD#4 Patient seen this AM. No acute events yesterday or overnight. Sourav continues to feel better, however she has continued abdominal pain, especially in her LLQ where she underwent her IR drainage procedure. She denies feeling feverish. She did have an episode of vomiting last night that she attributes to pain at her LLQ incision site. Otherwise she has been tolerating a regular diet without issues. Vitals - VSS, normotensive, non tachycardic, afebrile since 21Jul2018 at 1730 General - Laying in bed, AAOX, NAD Abdomen - Soft, nondistended. Incision from IR guided drainage covered with bandage. Bandage removed and incision well appearing. Some mild surrounding bruising but nothing large. No tenderness in abdomen except at incision site. Extremities - No edema Urine output - Excellent Labs: WBC trend: 19.3 on admission ---> 11.8 yesterday AM ---> 6.3 on 22Jul2018 ---> 5.2 on 23Jul2018 H/H - 10.7/31.2 yesterday --> 8.5/25.5 on 22Jul2018 ---> 8.2/24.5 on 23Jul2018 BMP - 144/3.3--109/28--6/0.91<97 ---> pending today AST/ALT - 39/37 ---> pending today Urine cultures - consistent with contamination Blood cultures - Negative at 48 hours Abscess culture from IR drainage - negative for any organisms Sourav continues to remain stable, though she has tenderness mostly at her IR drainage site. She does not seem to have tenderness anywhere else in her abdomen. No signs of sepsis and she has been afebrile for >48 hours. WBC count continues to trend down. H/H drop likely dilutional, and she continues to make excellent urine and her HR is in the 60s. I have very low suspicion for intra abdominal bleeding and I suspect she had hemoconcentration on admission due to extreme dehydration. Plan to transition to PO abx this evening if she remains afebrile. Will need 14 day total course. Will also repeat CT abd/pel today for interval assessment of pelvic abscesses. Should she continue to do well, discharge may occur Mazin AM with close outpatient follow up arranged. Main issue at this time appears to be pain control. All patient questions answered. Domenic Chu DO VS,Keo, I+O VS, Keo, I+O Laboratory Tests 07/23/18 06:16 Red Blood Count 2.78 L, Mean Corpuscular Volume 88.1, Mean Corpuscular Hemoglobin 29.5, Mean Corpuscular Hemoglobin Concent 33.5, Red Cell Distribution Width 12.3, Neutrophils (%) (Auto) 46.0, Lymphocytes (%) (Auto) 38.5, Monocytes (%) (Auto) 11.1 H, Eosinophils (%) (Auto) 3.4 H, Basophils (%) (Auto) 0.6, Neutrophils # (Auto) 2.4, Lymphocytes # (Auto) 2.0, Monocytes # (Auto) 0.6, Eosinophils # (Auto) 0.2, Basophils # (Auto) 0.0, Calcium Level 8.5, Aspartate Amino Transf (AST/SGOT) 46 H, Alanine Aminotransferase (ALT/SGPT) 41, Alkaline Phosphatase 71, Total Bilirubin 0.2 #, Total Protein 6.8, Albumin 2.5 L Vital Signs Date Time Temp Pulse Resp B/P (MAP) Pulse Ox O2 Delivery O2 Flow Rate FiO2 07/23/18 06:05 18 07/23/18 05:30 97.6 75 111/67 (82) 98 07/20/18 22:58 Room Air I&O- Last 24 Hours up to 6 AM 07/23/18 05:59 Intake Total 3490 ml Output Total 3050 ml Balance 440 ml DOMENIC CHU DO Jul 23, 2018 10:30
[2018-07-23] MEDS: PROMETHAZINE INJ 25 MG/ML VIAL (J2550) IV PRN (11:23)
[2018-07-23] MEDS: SENNA 8.6 MG TAB (SENOKOT) PO SCH ×2 (14:31→21:00)
[2018-07-23] MEDS: PRAZOSIN 1 MG CAP PO SCH (21:39)
[2018-07-23] MEDS: metroNIDAZOLE (FLAGYL) 500 MG TAB PO SCH (21:39)
[2018-07-24] VITALS: BP 118/67
[2018-07-24 04:00] VITALS: BP 113/62
[2018-07-24] MEDS ORDERED: LevoFLOXacin 500 MG TABLET PO SCH (06:00)
[2018-07-24] MEDS: IBUPROFEN 800 MG TAB PO SCH (06:16)
[2018-07-24 06:56] LABS: BASO % 0.6 % (0.0-1.0); EOS # 0.2 10^3/uL (0.0-0.50); EOS % 3.7 % (0.0-3.0); HEMATOCRIT 26.6 % (36.0-47.0); LYMPH # 1.9 10^3/uL (1.5-6.5); LYMPH % 38.5 % (24.0-44.0); MEAN CORPUSCULAR HEMOGLOBIN 29.7 pg (27.0-33.0); MEAN CORPUSCULAR HGB CONC 33.8 g/dl (32.0-36.5); MEAN CORPUSCULAR VOLUME 87.8 fl (80.0-96.0); MONO # 0.5 10^3/uL (0.0-0.8); MONO % 10.3 % (0.0-5.0); NEUTROPHILS # 2.3 10^3/uL (1.8-7.7); NEUTROPHILS % 46.3 % (36.0-66.0); PLATELET COUNT, AUTOMATED 340 10^3/uL (150-450); RED BLOOD COUNT 3.03 10^6/uL (4.00-5.40); WHITE BLOOD COUNT 4.9 10^3/uL (4.0-10.0)
[2018-07-24 07:21] LABS: ALBUMIN 2.6 GM/DL (3.2-5.2); ALT/SGPT 138 U/L (12-78); BILIRUBIN,TOTAL 0.4 MG/DL (0.2-1.0); BLOOD UREA NITROGEN 5 MG/DL (7-18); CALCIUM LEVEL 8.5 MG/DL (8.5-10.1); CARBON DIOXIDE LEVEL 29 MEQ/L (21-32); CHLORIDE LEVEL 107 MEQ/L (98-107); CREATININE FOR GFR 0.64 MG/DL (0.55-1.30); GLOMERULAR FILTRATION RATE > 60.0 (>60); GLUCOSE, FASTING 91 MG/DL (70-100); POTASSIUM SERUM 3.5 MEQ/L (3.5-5.1); SODIUM LEVEL 142 MEQ/L (136-145); TOTAL PROTEIN 7.3 GM/DL (6.4-8.2)
[2018-07-24] MEDS ORDERED: ZOFR4TAB16 PO (07:24)
[2018-07-24] MEDS ORDERED: PERCOCET PO (07:24)
[2018-07-24] MEDS ORDERED: MIRA3350 PO (07:24)
[2018-07-24] MEDS ORDERED: METR-265 PO (07:24)
[2018-07-24] MEDS ORDERED: LEVA1TAB2 PO (07:24)
[2018-07-24] MEDS ORDERED: IBUP80TA PO (07:24)
[2018-07-24 08:00] VITALS: BP 135/79
--- NOTE | 2018-07-24 08:10 | DS.PDOC ---
Discharge Summary General Date of Admission July 20, 2018 at 20:57 Date of Discharge July 24, 2018 Discharge Summary ADMITTING DIAGNOSES: 1. Tuboovarian abscess bilaterally DISCHARGE DIAGNOSES: 1. Tuboovarian abscess bilaterally HOSPITAL COURSE: Ms. Leone was admitted to [facility] on 20Jul2018 for bilateral tuboovarian abscesses after presenting to the ER with pelvic pain, fevers, and nausea/vomiting. She was started on broad spectrum parenteral antibiotics. Blood and urine cultures were obtained. She returned positive for chlamydia and her sexual partner was treated for chlamydia as well with azithromycin. Her clinical course gradually improved. She remained afebrile for the rest of her hospital stay and her WBC count downtrended to normal. On Tuesday, 21Jul2018 she underwent IR guided pelvic abscess drainage on her left side. After the procedure, she did develop a small pelvic hematoma near her rectus sheath as seen on follow up CT imaging but her H/H remained stable. Her clinical i mprovement continued and she was transitioned to PO antibiotics on 23Jul2018 after being 72 hours afebrile. She did well on PO antibiotics and on 24Jul2018 she met all appropriate hospital discharge criteria. She was discharged home on 24Jul2018 with plan for 14 day total antibiotic course. On her day of discharge she was ambulating, voiding, tolerating a regular diet, and her pain was well controlled with PO pain medications. DISCHARGE MEDICATIONS: Please see below. ALLERGIES: Please see below. PHYSICAL EXAMINATION ON DISCHARGE: VITAL SIGNS: Please see below. GENERAL: AAOX3, NAD CARDIOVASCULAR EXAMINATION: RRR ABDOMINAL EXAMINATION: Soft, non distended. Incision from IR drainage well appearing. Small amount of bruising but not increased around incision. Minimal tenderness to palpation throughout abdomen. EXTREMITIES: No edema PSYCHIATRIC EXAMINATION: Affect appropriate LABORATORY DATA: Please see below. ACTIVITY: Pelvic rest for full 6 weeks. DIET: Regular DISCHARGE PLAN: Discharge home on 24Jul2018 DISPOSITION: Discharge home on 24Jul2018 . DISCHARGE INSTRUCTIONS: 1. residential direct support professional antibiotics and take as prescribed. Very important. 2. No sexual activity for 6 weeks. Very important. ITEMS TO FOLLOWUP ON ON OUTPATIENT: 1. residential direct support professional antibiotics. 2. Follow up in office. DISCHARGE CONDITION: Stable. TIME SPENT ON DISCHARGE: Greater than 20 minutes. Cristiano Chu DO Vital Signs/I&Os Vital Signs Date Time Temp Pulse Resp B/P (MAP) Pulse Ox O2 Delivery O2 Flow Rate FiO2 07/24/18 04:00 98.6 61 16 113/62 (79) 98 07/20/18 22:58 Room Air I&O- Last 24 Hours up to 6 AM 07/24/18 06:00 Intake Total 1230 ml Output Total 1800 ml Balance -570 ml Laboratory Data Labs 24H Laboratory Tests 2 07/24/18 06:21: Immature Granulocyte % (Auto) 0.6, White Blood Count 4.9, Red Blood Count 3.03L, Hemoglobin 9.0L, Hematocrit 26.6L, Mean Corpuscular Volume 87.8, Mean Corpuscular Hemoglobin 29.7, Mean Corpuscular Hemoglobin Concent 33.8, Red Cell Distribution Width 12.3, Platelet Count 340, Neutrophils (%) (Auto) 46.3, Lymp hocytes (%) (Auto) 38.5, Monocytes (%) (Auto) 10.3H, Eosinophils (%) (Auto) 3.7H, Basophils (%) (Auto) 0.6, Neutrophils # (Auto) 2.3, Lymphocytes # (Auto) 1.9, Monocytes # (Auto) 0.5, Eosinophils # (Auto) 0.2, Basophils # (Auto) 0.0, Nucleated Red Blood Cells % (auto) 0.0, Anion Gap 6L, Glomerular Filtration Rate > 60.0, Blood Urea Nitrogen 5L, Creatinine 0.64, Sodium Level 142, Potassium Level 3.5, Chloride Level 107, Carbon Dioxide Level 29, Calcium Level 8.5, Aspartate Amino Transf (AST/SGOT) 227H, Alanine Aminotransferase (ALT/SGPT) 138H, Alkaline Phosphatase 85, Total Bilirubin 0.4#, Total Protein 7.3, Albumin 2.6L, Albumin/Globulin Ratio 0.55L CBC/BMP Laboratory Tests 07/24/18 06:21 Red Blood Count 3.03 L, Mean Corpuscular Volume 87.8, Mean Corpuscular Hemoglobin 29.7, Mean Corpuscular Hemoglobin Concent 33.8, Red Cell Distribution Width 12.3, Neutrophils (%) (Auto) 46.3, Lymphocytes (%) (Auto) 38.5, Monocytes (%) (Auto) 10.3 H, Eosinophils (%) (Auto) 3.7 H, Basophils (%) (Auto) 0.6, Neutrophils # (Auto) 2.3, Lymphocytes # (Auto) 1.9, Monocytes # (Auto) 0.5, Eosinophils # (Auto) 0.2, Basophils # (Auto) 0.0, Calcium Level 8.5, Aspartate Amino Transf (AST/SGOT) 227 H, Alanine Aminotransferase (ALT/SGPT) 138 H, Alkaline Phosphatase 85, Total Bilirubin 0.4 #, Total Protein 7.3, Albumin 2.6 L Microbiology Microbiology 07/20/18 Blood Culture - Preliminary, Resulted No Growth after 72 hours. All specime... 07/20/18 Blood Culture - Preliminary, Resulted No Growth after 72 hours. All specime... 07/20/18 Wet Prep - Final, Complete 07/20/18 Urine Culture - Final, Complete 07/20/18 Urine Culture - Final, Complete 07/21/18 Gram Stain - Final, Complete 07/21/18 Abscess Culture - Final, Complete 07/21/18 Anaerobic Culture - Final, Complete Discharge Medications Scheduled Ibuprofen (Ibuprofen) 800 Mg Tablet, 800 MG PO Q8H Levofloxacin (Levaquin) 500 Mg Tablet, 500 MG PO DAILY@06 Metronidazole (Metronidazole) 500 Mg Tablet, 500 MG PO BID Polyethylene Glycol 3350 (Miralax) 119 Gm Powder, 17 GRAM PO DAILY for constipation dissolve in water Prazosin Hcl (Prazosin HCl) 1 Mg Capsule, 3 MG PO QHS, (Reported) Trazodone HCl (Trazodone HCl) 50 Mg Tablet, 150 MG PO QHS, (Reported) Scheduled PRN Hydroxyzine HCl (Hydroxyzine HCl) 50 Mg Tablet, 50 MG PO TID PRN for ANXIETY, (Reported) Ondansetron HCl (Zofran) 4 Mg Tablet, 4 MG PO Q6-8HP PRN for nausea/vomiting Oxycodone/Acetaminophen (Oxycodone-Acetaminophen 5-325) 1 Each Tablet, 1 TAB PO Q6HP PRN for MILD/MODERATE PAIN (PS 1-7) Allergies Coded Allergies: No Known Allergies (Unverified , 07/11/17) CRISTIANO CHU DO Jul 24, 2018 08:10
[2018-07-24] MEDS: metroNIDAZOLE (FLAGYL) 500 MG TAB PO SCH (08:17)
[2018-07-24] MEDS: SENNA 8.6 MG TAB (SENOKOT) PO SCH (08:17)
[2018-07-24] MEDS: FLUoxetine 20 MG CAP PO SCH (08:17)
== END 2018-07-24 10:25 | disposition home or self-care (01) | DRG 531 ==
LOC: M ED 14:52 → M ED INP 20:57 → M PED 23:27
PROVIDERS: ADMIT Obstetrics & Gynecology; ATTEND Obstetrics & Gynecology
PROC: 0W9G4ZZ Drainage of Peritoneal Cavity, Percutaneous Endoscopic Approach (ICD-10-PCS; principal; 2018-07-21)
DX: N70.03 Acute salpingitis and oophoritis (principal); F43.10 Post-traumatic stress disorder, unspecified; Z79.899 Other long term (current) drug therapy

== ENCOUNTER 2019-01-22 16:28 | Emergency (ER) | payer OTHER ==
[~2019-01-22] VITALS: Ht 154.9 cm; Wt 72.7 kg
[~2019-01-22 16:28] MED LIST changes: +ACET-897 PO; +FLUO20CA19 PO; +HYDR50TA70 PO; +IBUP80TA PO; +LEVA1TAB2 PO; +METO10TA2 PO; +METR-265 PO; +MIRA3350 PO; -OMEP40CA2 PO; +OMEP40CA97 PO; +PERCOCET PO; +TRAZ-252 PO; +VITMTA PO; +ZOFR4TAB16 PO
[2019-01-22 18:13] LABS: BASO # 0.1 10^3/uL (0.0-0.2); BASO % 0.6 % (0.0-1.0); EOS % 0.5 % (0.0-3.0); HEMOGLOBIN 13.5 g/dl (12.0-15.5); LYMPH # 1.9 10^3/uL (1.5-5.0); LYMPH % 24.2 % (24.0-44.0); MEAN CORPUSCULAR HEMOGLOBIN 30.3 pg (27.0-33.0); MEAN CORPUSCULAR HGB CONC 33.8 g/dl (32.0-36.5); MEAN CORPUSCULAR VOLUME 89.7 fl (80.0-96.0); MONO # 0.6 10^3/uL (0.0-0.8); MONO % 8.2 % (0.0-5.0); NEUTROPHILS # 5.2 10^3/uL (1.5-8.5); NEUTROPHILS % 66.2 % (36.0-66.0); PLATELET COUNT, AUTOMATED 247 10^3/uL (150-450); RED BLOOD COUNT 4.46 10^6/uL (4.00-5.40); WHITE BLOOD COUNT 7.8 10^3/uL (4.0-10.0)
[2019-01-22 18:55] LABS: BLOOD UREA NITROGEN 10 MG/DL (7-18); CALCIUM LEVEL 8.9 MG/DL (8.5-10.1); CARBON DIOXIDE LEVEL 24 MEQ/L (21-32); CHLORIDE LEVEL 107 MEQ/L (98-107); GLOMERULAR FILTRATION RATE > 60.0 (>60); GLUCOSE, FASTING 102 MG/DL (70-100); HCG, SERUM QUANTITATIVE 1155 MIU/ML; POTASSIUM SERUM 3.8 MEQ/L (3.5-5.1); SODIUM LEVEL 138 MEQ/L (136-145)
--- NOTE | 2019-01-22 21:35 | REPVR ---
PROCEDURE INFORMATION: Exam: US First Trimester, Transabdominal Exam date and time: 01/22/2019 8:48 PM Age: 23 years old Clinical history: complicated by abdominal or pelvic pain; Lower; First trimester; Gestational age or lmp: 4w6d; ; Additional info: Hcg quant 1155, lmp 10/16, spotting in oct TECHNIQUE: Imaging protocol: Real-time transabdominal obstetrical ultrasound of the maternal pelvis and a first trimester , less than 14 weeks 0 days, with image documentation. COMPARISON: No relevant prior studies available. FINDINGS: GESTATION: Gestation: 4.6 mm gestational sac. No pole. Heart rate: Not present. Placenta: No subchorionic bleed. Amniotic fluid: Amniotic and chorionic fluid are normal for gestational age. BIOMETRY: Estimated gestational age: Gestational age 5 weeks and 2 days. MATERNAL: Uterus: 9.5 x 4.1 x 6.1 cm uterus. Cervix: Unremarkable. Right adnexa: 3.3 x 2.1 x 2.9 cm right ovary with normal follicular architecture and blood flow. Left adnexa: 2.9 x 2 x 3.1 cm left ovary with normal follicular architecture and blood flow. Intraperitoneal: No free fluid. IMPRESSION: Intrauterine gestation sac measuring 5 weeks and 2 days with due date. No pole or cardiac activity at present, recommend short-term followup. Electronically signed by: Inocente Kenny On 01/22/2019 21:35:25 PM
[2019-01-22 21:55] VITALS: BP 130/80
== END 2019-01-22 22:08 | disposition home or self-care (01) ==
LOC: M ED 16:28
DX: Z32.01 Encounter for pregnancy test, result positive (principal); Z3A.01 Less than 8 weeks gestation of pregnancy